=== PATIENT | male | born 1945 | race Caucasian/White ===

== ENCOUNTER 2017-06-19 06:00 | Emergency (ER) | payer OTHER, MEDICARE ==
[2017-06-19 06:06] VITALS: BP 144/83; PULSE 58; RESP 16; TEMP 97.5; O2SAT 97
--- NOTE | 2017-06-19 06:49 | EDPHY ---
H & P Stated Complaint: constipation Time Seen by Provider: 06/19/17 06:36 HPI/ROS: CHIEF COMPLAINT: Flat stool HISTORY OF PRESENT ILLNESS: The patient is a 72-year-old man comes to the emergency department complaining of small episodes of flat stool. He states that it looks like a piece of catie toast. Not discolored. Not bloody. Not painful. No vomiting. No fevers. No abdominal pain. His symptoms have been like this for about a week. He has several episodes each day. He was concerned that he might have a cancer or obstruction. He has been passing gas. He has been eating normally. He feels slightly bloated. He tried taking 1 capsule of MiraLax each day for the last 3 days without significant relief. REVIEW OF SYSTEMS: Constitutional: denies: chills, fever, recent illness, recent injury EENTM: denies: blurred vision, double vision, nose congestion Respiratory: denies: cough, shortness of breath Cardiac: denies: chest pain, irregular heart rate, lightheadedness, palpitations Gastrointestinal/Abdominal: See HPI, denies: abdominal pain, diarrhea, nausea, vomiting, blood streaked stools Genitourinary: denies: dysuria, frequency, hematuria, pain Musculoskeletal: denies: joint pain, muscle pain Skin: denies: lesions, rash, jaundice, bruising Neurological: denies: headache, numbness, paresthesia, tingling, dizziness, weakness Hematologic/Lymphatic: denies: blood clots, easy bleeding, easy bruising Immunologic/allergic: denies: HIV/AIDS, transplant EXAM: GENERAL: Well-appearing, well-nourished and in no acute distress. HEAD: Atraumatic, normocephalic. EYES: Pupils equal round and reactive to light, extraocular movements intact, sclera anicteric, conjunctiva are normal. ENT: TMs normal, nares patent, oropharynx clear without exudates. Moist mucous membranes. NECK: Normal range of motion, supple without lymphadenopathy or JVD. LUNGS: Breath sounds clear to auscultation bilaterally and equal. No wheezes rales or rhonchi. HEART: Regular rate and rhythm without murmurs, rubs or gallops. ABDOMEN: Soft, nontender, normoactive bowel sounds. No guarding, no rebound. No masses appreciated. Rectal: Normal rectal exam, no fissures, no hemorrhoids, nonbloody, normal tone BACK: No CVA tenderness, no spinal tenderness, step-offs or deformities EXTREMITIES: Normal range of motion, no pitting or edema. No clubbing or cyanosis. NEUROLOGICAL: Cranial nerves II through XII grossly intact. Normal speech, normal gait. 5/5 strength, normal movement in all extremities, normal sensation PSYCH: Normal mood, normal affect. SKIN: Warm, dry, normal turgor, no visible rashes or lesions. Source: Patient Exam Limitations: No limitations - Personal History Current Tetanus/Diphtheria Vaccine: Unsure Current Tetanus Diphtheria and Acellular Pertussis (TDAP): Unsure - Medical/Surgical History Hx Asthma: No Hx Chronic Respiratory Disease: No Hx Diabetes: No Hx Cardiac Disease: No Hx Renal Disease: No Hx Cirrhosis: No Hx Alcoholism: No Hx HIV/AIDS: No Hx Splenectomy or Spleen Trauma: No Other PMH: c3-c4 fusion, R hip replavcement, L knee replacement - Family History Significant Family History: No pertinent family hx - Social History Smoking Status: Never smoked Alcohol Use: Sober Drug Use: None Constitutional: Initial Vital Signs Temperature (C) 36.4 C 06/19/17 06:04 Heart Rate 58 L 06/19/17 06:04 Respiratory Rate 16 06/19/17 06:04 Blood Pressure 144/83 H 06/19/17 06:04 O2 Sat (%) 97 06/19/17 06:04 O2 Delivery Mode Room Air Allergies/Adverse Reactions: No Known Allergies Allergy (Unverified 06/19/17 06:03) Home Medications: Medication Instructions Recorded Telly 06/19/17 Miralax 17 gm (*) 06/19/17 Medical Decision Making ED Course/Re-evaluation: The patient has a normal exam and stable vital signs. We discussed options. I do not find any abnormality on rectal exam. He has been able to pass gas and stool but simply in small allotments and states that it is funny shaped. He had a colonoscopy 8 months ago that he reports was normal other than a benign polyp. I will refer him back to his trim setter. I encouraged him to increase his MiraLax to 3-4 capsules per day until her symptoms relieved. Differential Diagnosis: Partial list of the Differential diagnosis considered include but were not limited to; constipation, irritable bowel disease and although unlikely based on the history and physical exam, I also considered hemorrhoid, fissure, cancer , obstruction. I discussed these differential diagnoses and the plan with the patient as well as the usual and expected course. The patient understands that the diagnosis is provisional and that in medicine we are not always correct and that further workup is often warranted. Usual and customary warnings were given. All of the patient's questions were answered. The patient was instructed to return to the emergency department should the symptoms at all worsen or return, otherwise to followup with the physician as we discussed. Departure - Departure Disposition: Home, Routine, Self-Care Clinical Impression: Constipation Qualifiers: Constipation type: unspecified constipation type Qualified Code(s): K59.00 - Constipation, unspecified Condition: Fair Instructions: Constipation (ED) Referrals: Thomas Davenport MD [Primary Care Provider] - As per Instructions Cirilo Anne MD [Medical Doctor] - As per Instructions
== END 2017-06-19 06:53 | disposition home or self-care (01) ==
DX: K59.00 Constipation, unspecified (principal)

== ENCOUNTER 2017-06-22 13:59 | Emergency (ER) | payer OTHER, MEDICARE ==
[2017-06-22 14:04] VITALS: RESP 16
[2017-06-22] MEDS ORDERED: NS 1,000 ML IV ONE (15:22)
--- NOTE | 2017-06-22 15:29 | EDPHY ---
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 He is able to have bowel movements but states that they are pencil thin and that he feels bloated. No blood. No pain. No vomiting. He was seen by me in the ER couple days ago and at that time was complaining of flat stool that looked like "catie toast". A performed a rectal exam that was normal and referred him to GI. He had an appointment with GI today that was canceled unexpectedly so he came back to the emergency department. He states that he has several family members who are doctors and told him to come get imaging to rule out impaction. No fevers. REVIEW OF SYSTEMS: Constitutional: denies: chills, fever, recent illness, recent injury EENTM: denies: blurred vision, double vision, nose congestion Respiratory: denies: cough, shortness of breath Cardiac: denies: chest pain, irregular heart rate, lightheadedness, palpitations Gastrointestinal/Abdominal: The see HPI denies: abdominal pain, diarrhea, nausea, vomiting, blood streaked stools Genitourinary: denies: dysuria, frequency, hematuria, pain Musculoskeletal: denies: joint pain, muscle pain Skin: denies: lesions, rash, jaundice, bruising Neurological: denies: headache, numbness, paresthesia, tingling, dizziness, weakness Hematologic/Lymphatic: denies: blood clots, easy bleeding, easy bruising Immunologic/allergic: denies: HIV/AIDS, transplant EXAM: GENERAL: Well-appearing, well-nourished and in no acute distress. HEAD: Atraumatic, normocephalic. EYES: Pupils equal round and reactive to light, extraocular movements intact, sclera anicteric, conjunctiva are normal. ENT: TMs normal, nares patent, oropharynx clear without exudates. Moist mucous membranes. NECK: Normal range of motion, supple without lymphadenopathy or JVD. LUNGS: Breath sounds clear to auscultation bilaterally and equal. No wheezes rales or rhonchi. HEART: Regular rate and rhythm without murmurs, rubs or gallops. ABDOMEN: Soft, nontender, normoactive bowel sounds. No guarding, no rebound. No masses appreciated. BACK: No CVA tenderness, no spinal tenderness, step-offs or deformities EXTREMITIES: Normal range of motion, no pitting or edema. No clubbing or cyanosis. NEUROLOGICAL: Cranial nerves II through XII grossly intact. Normal speech, normal gait. 5/5 strength, normal movement in all extremities, normal sensation PSYCH: Normal mood, normal affect. SKIN: Warm, dry, normal turgor, no visible rashes or lesions. Source: Patient Exam Limitations: No limitations - Personal History Current Tetanus Diphtheria and Acellular Pertussis (TDAP): Yes - Medical/Surgical History Hx Asthma: No Hx Chronic Respiratory Disease: No Hx Diabetes: No Hx Cardiac Disease: No Hx Renal Disease: No Hx Cirrhosis: No Hx Alcoholism: No Hx HIV/AIDS: No Hx Splenectomy or Spleen Trauma: No Other PMH: c3-c4 fusion, R hip replavcement, L knee replacement - Family History Significant Family History: No pertinent family hx - Social History Smoking Status: Never smoked Alcohol Use: Sober Drug Use: None Constitutional: Initial Vital Signs Temperature (C) 36.6 C 06/22/17 14:02 Heart Rate 61 06/22/17 14:02 Respiratory Rate 16 06/22/17 14:02 Blood Pressure 137/77 H 06/22/17 14:02 O2 Sat (%) 96 06/22/17 14:02 O2 Delivery Mode Room Air Allergies/Adverse Reactions: No Known Allergies Allergy (Unverified 06/19/17 06:03) Home Medications: Medication Instructions Recorded Ambsupriya 06/19/17 Miralax 17 gm (*) 06/19/17 Medical Decision Making ED Course/Re-evaluation: 4:30 p.m. we discussed the patient's x-rays and lab results. He refused the CT scan. He had initially come requesting an x-ray. We discussed the limited ability of x-ray to shows GI abnormalities. He states that he had multiple kidney stones and CT scans and laminectomies in the past and did not want have another CT scan eventually agreed to the x-ray. His lab work and x-ray are unremarkable. His abdominal exam remains benign. He will reschedule his appointment with GI. He declines any further workup or testing at this time. Differential Diagnosis: Partial list of the Differential diagnosis considered include but were not limited to; constipation, obstruction, and although unlikely based on the history and physical exam, I also considered tumor, volvulus, ischemia, appendicitis. I discussed these differential diagnoses and the plan with the patient as well as the usual and expected course. The patient understands that the diagnosis is provisional and that in medicine we are not always correct and that further workup is often warranted. Usual and customary warnings were given. All of the patient's questions were answered. The patient was instructed to return to the emergency department should the symptoms at all worsen or return, otherwise to followup with the physician as we discussed. - Data Points Laboratory Results: Laboratory Results 06/22/17 15:35 06/22/17 15:35 Medications Given: Discontinued Medications Sodium Chloride (Ns) 1,000 mls @ 0 mls/hr IV EDNOW ONE; Wide Open PRN Reason: Protocol Stop: 06/22/17 15:23 Last Admin: 06/22/17 15:39 Dose: 1,000 mls Departure - Departure Disposition: Home, Routine, Self-Care Clinical Impression: Constipation Qualifiers: Constipation type: other constipation type Qualified Code(s): K59.09 - Other constipation Condition: Fair Instructions: Constipation (ED) Referrals: Thomas Davenport MD [Primary Care Provider] - As per Instructions Cirilo Anne MD [Medical Doctor] - As per Instructions
[2017-06-22 15:45] LABS: % IMMATURE GRANULYOCYTES 0.4 % (0.0-1.1); ABSOLUTE IMMATURE GRANULOCYTES 0.02 10^3/uL (0.00-0.10); ADD DIFF? NO; ADD MORPH? NO; ADD SCAN? NO; ATYPICAL LYMPHOCYTE FLAG 0 (0-99); FRAGMENT RBC FLAG 0 (0-99); HEMATOCRIT 45.3 % (40.0-51.0); LEFT SHIFT FLG 0 (0-99); LIPEMIA HEMOLYSIS FLAG 80 (0-99); MEAN CELL HEMOGLOBIN 29.8 pg (27.9-34.1); MEAN CELL HEMOGLOBIN CONCENTR. 33.1 g/dL (32.4-36.7); MEAN CELL VOLUME 90.1 fL (81.5-99.8); MEAN PLATELET VOLUME 11.2 fL (8.7-11.7); PLATELET CLUMPS FLAG 0 (0-99); PLATELET COUNT 265 10^3/uL (150-400); RED BLOOD CELL COUNT 5.03 10^6/uL (4.40-6.38); RED CELL DISTRIBUTION WIDTH 14.2 % (11.5-15.2)
[2017-06-22 16:05] LABS: ALANINE AMINOTRANSFERASE 30 IU/L (21-72); ALBUMIN 4.2 g/dL (3.5-5.0); ALKALINE PHOSPHATASE 70 IU/L (38-126); ANION GAP 11 mEq/L (8-16); ASPARTATE AMINOTRANSFERASE 22 IU/L (17-59); BILIRUBIN,TOTAL 0.7 mg/dL (0.1-1.4); BILIRUBIN-CONJUGATED 0.3 mg/dL (0.0-0.5); BILIRUBIN-UNCONJUGATED 0.4 mg/dL (0.0-1.1); CARBON DIOXIDE 24 mEq/l (22-31); CHLORIDE 107 mEq/L (97-110); GLOMERULAR FILTRATION RATE > 60; GLUCOSE 95 mg/dL (70-100); POTASSIUM 4.9 mEq/L (3.5-5.2); SODIUM 142 mEq/L (134-144); TOTAL PROTEIN 6.6 g/dL (6.3-8.2)
[2017-06-22 16:46] VITALS: BP 125/74; PULSE 81; TEMP 97.7; O2SAT 98
== END 2017-06-22 16:46 | disposition home or self-care (01) ==
DX: K59.09 Other constipation (principal); E86.9 Volume depletion, unspecified

== ENCOUNTER 2017-06-26 16:25 | Emergency (ER) | payer OTHER, MEDICARE ==
[2017-06-26 16:33] VITALS: RESP 16
[2017-06-26] MEDS ORDERED: NS 1,000 ML IV ONE (16:48)
[2017-06-26] MEDS ORDERED: KETOROLAC 30 MG/1 ML SDV IVP ONE (16:48)
[2017-06-26 16:52] LABS: % IMMATURE GRANULYOCYTES 0.2 % (0.0-1.1); ABSOLUTE IMMATURE GRANULOCYTES 0.01 10^3/uL (0.00-0.10); ADD DIFF? NO; ADD MORPH? NO; ADD SCAN? NO; ATYPICAL LYMPHOCYTE FLAG 10 (0-99); FRAGMENT RBC FLAG 0 (0-99); HEMATOCRIT 46.1 % (40.0-51.0); HEMOGLOBIN 15.3 g/dL (13.7-17.5); LEFT SHIFT FLG 0 (0-99); LIPEMIA HEMOLYSIS FLAG 80 (0-99); MEAN CELL HEMOGLOBIN CONCENTR. 33.2 g/dL (32.4-36.7); MEAN CELL VOLUME 87.3 fL (81.5-99.8); MEAN PLATELET VOLUME 10.9 fL (8.7-11.7); PLATELET CLUMPS FLAG 0 (0-99); PLATELET COUNT 257 10^3/uL (150-400); RED BLOOD CELL COUNT 5.28 10^6/uL (4.40-6.38); RED CELL DISTRIBUTION WIDTH 14.2 % (11.5-15.2)
--- NOTE | 2017-06-26 17:00 | EDPHY ---
HPI/HX/ROS/PE/MDM Narrative: CHIEF COMPLAINT: Right lower quadrant pain HPI: The patient is a 72-year-old male with a history of prior kidney stones. The patient has been seen in the ER twice over the last 8 days, both for symptoms of constipation abnormal stool. The patient was seen by supplier quality engineer this morning who apparently performed what sounds like an anoscopy or possible sigmoidoscopy which the patient tells me was negative. The patient is scheduled for colonoscopy within the next few weeks to evaluate his symptoms. Following his appointment with GI, the patient developed severe pain in his right flank and right lower quadrant which she describes as exactly similar to the onset of prior kidney stones. I did look at the patient's previous x-ray which suggests nonobstructive nephrolithiasis on the right side 4 days ago. Patient denies fever. He denies other abdominal pain. REVIEW OF SYSTEMS: Aside from elements discussed in the HPI, a comprehensive 10-point review of systems was reviewed and is negative. PMH: Includes multiple orthopedic surgeries. No history of diabetes. SOCIAL HISTORY: Patient is a retired dentist. He is . PHYSICAL EXAM: General:Patient is alert, in no acute distress. ENT:Eyes are normal to inspection. ENT inspection normal. Neck: Normal inspection. Full range of motion. Respiratory:No respiratory distress. Breath sounds normal bilaterally. Cardiovascular: Regular rate and rhythm. Strong peripheral pulses. Normal cap refill. Abdomen:The abdomen is nontender to palpation. There are no peritoneal signs. There are normal bowel sounds. Back: Normal to inspection. No tenderness to palpation. Skin: Normal color. No rash. Warm and dry. Extremities: Normal appearance. Full range of motion. Neuro: Oriented x3. Normal motor function. Normal sensory function. - Data Points Imaging Results: Imaging Impressions Abdomen/Pelvis Ultrasound 06/26/17 16:50 Impression: 1. Moderate right hydronephrosis, which does not change after voiding. Previously-noted nephrolithiasis is not appreciated sonographically, but would be better detailed with unenhanced CT imaging, as clinically directed. 2. Bilateral urinary bladder diverticula, similar in configuration to a CT scan of 04/26/2016. 3. There is a 5 mm calcification posterior to the right aspect of the urinary bladder, and it is unclear if this represents a distal ureterolith or an adjacent phlebolith. 4. Mobile debris seen within the dependent portion of the urinary bladder. Findings were discussed with Kermit Vance MD at 18:07, on 06/26/2017. Laboratory Results: Laboratory Results 06/26/17 16:44 06/26/17 16:44 06/26/17 06/26/17 06/26/17 17:26 16:44 16:44 WBC 5.42 10^3/uL 10^3/uL (3.80-9.50) RBC 5.28 10^6/uL 10^6/uL (4.40-6.38) Hgb 15.3 g/dL g/dL (13.7-17.5) Hct 46.1 % % (40.0-51.0) MCV 87.3 fL fL (81.5-99.8) MCH 29.0 pg pg (27.9-34.1) MCHC 33.2 g/dL g/dL (32.4-36.7) RDW 14.2 % % (11.5-15.2) Plt Count 257 10^3/uL 10^3/uL (150-400) MPV 10.9 fL fL (8.7-11.7) Neut % (Auto) 63.0 % % (39.3-74.2) Lymph % (Auto) 26.8 % % (15.0-45.0) [place] % (Auto) 7.6 % % (4.5-13.0) Eos % (Auto) 1.8 % % (0.6-7.6) Baso % (Auto) 0.6 % % (0.3-1.7) Nucleat RBC Rel Count 0.0 % % (0.0-0.2) Absolute Neuts (auto) 3.42 10^3/uL 10^3/uL (1.70-6.50) Absolute Lymphs (auto) 1.45 10^3/uL 10^3/uL (1.00-3.00) Absolute Monos (auto) 0.41 10^3/uL 10^3/uL (0.30-0.80) Absolute Eos (auto) 0.10 10^3/uL 10^3/uL (0.03-0.40) Absolute Basos (auto) 0.03 10^3/uL 10^3/uL (0.02-0.10) Absolute Nucleated RBC 0.00 10^3/uL 10^3/uL (0-0.01) Immature Gran % 0.2 % % (0.0-1.1) Immature Gran # 0.01 10^3/uL 10^3/uL (0.00-0.10) Sodium 141 mEq/L mEq/L (134-144) Potassium 4.3 mEq/L mEq/L (3.5-5.2) Chloride 105 mEq/L mEq/L (97-110) Carbon Dioxide 25 mEq/l mEq/l (22-31) Anion Gap 11 mEq/L mEq/L (8-16) BUN 16 mg/dL mg/dL (7-23) Creatinine 0.8 mg/dL mg/dL (0.7-1.3) Estimated GFR > 60 Glucose 111 mg/dL H mg/dL (70-100) Calcium 9.5 mg/dL mg/dL (8.5-10.4) Urine Color YELLOW Urine Appearance HAZY Urine pH 6.0 (5.0-7.5) Ur Specific [place] 1.015 (1.002-1.030) Urine Protein NEGATIVE (NEGATIVE) Urine Ketones NEGATIVE (NEGATIVE) Urine Blood 2+ H (NEGATIVE) Urine Nitrate POSITIVE H (NEGATIVE) Urine Bilirubin NEGATIVE (NEGATIVE) Urine Urobilinogen 0.2 EU EU (0.2-1.0) Ur Leukocyte Esterase 1+ H (NEGATIVE) Urine RBC 25-50 /hpf H /hpf (0-3) Urine WBC 15-25 /hpf H /hpf (0-3) Ur Epithelial Cells 1+ /lpf /lpf (NONE-1+) Urine Bacteria 3+ /hpf H /hpf (NONE SEEN) Urine Mucus 1+ /lpf /lpf (NONE-1+) Urine Yeast OCCASIONAL /hpf H /hpf (NONE SEEN) Urine Glucose NEGATIVE (NEGATIVE) Medications Given: Discontinued Medications Sodium Chloride (Ns) 1,000 mls @ 0 mls/hr IV EDNOW ONE; Wide Open PRN Reason: Protocol Stop: 06/26/17 16:49 Last Admin: 06/26/17 16:52 Dose: 1,000 mls Ketorolac Tromethamine (Toradol) 15 mg IVP EDNOW ONE Stop: 06/26/17 16:49 Last Admin: 06/26/17 16:52 Dose: 15 mg General Time Seen by Provider: 06/26/17 16:29 Initial Vital Signs: Initial Vital Signs Temperature (C) 36.5 C 06/26/17 16:32 Heart Rate 56 L 06/26/17 16:32 Respiratory Rate 16 06/26/17 16:32 Blood Pressure 142/97 H 06/26/17 16:32 O2 Sat (%) 98 06/26/17 16:32 O2 Delivery Mode Room Air Allergies/Adverse Reactions: No Known Allergies Allergy (Unverified 06/19/17 06:03) Home Medications: Medication Instructions Recorded Ambien 06/19/17 Miralax 17 gm (*) 06/19/17 Cephalexin [Keflex] 500 mg PO TID #21 cap 06/26/17 Cialis 06/26/17 Departure - Departure Disposition: Home, Routine, Self-Care Clinical Impression: Renal colic on right side Condition: Good Instructions: Kidney Stones (ED) Additional Instructions: Followup with your urologist within one week. Return to the emergency apartment for fever, severe pain, inability to urinate or other concerns. Strain urine to try and catch the kidney stone and bring this to the urology appointment. Follow-up with GI specialist as scheduled. Referrals: Thomas Davenport MD [Primary Care Provider] - As per Instructions Prescriptions: Cephalexin [Keflex] 500 mg PO TID #21 cap
[2017-06-26 17:03] LABS: ANION GAP 11 mEq/L (8-16); CALCIUM 9.5 mg/dL (8.5-10.4); CARBON DIOXIDE 25 mEq/l (22-31); CHLORIDE 105 mEq/L (97-110); CREATININE 0.8 mg/dL (0.7-1.3); GLOMERULAR FILTRATION RATE > 60; GLUCOSE 111 mg/dL (70-100); POTASSIUM 4.3 mEq/L (3.5-5.2); SODIUM 141 mEq/L (134-144)
[2017-06-26 17:39] LABS: COLOR YELLOW; LEUKOCYTE ESTERASE,URINE 1+ (NEGATIVE); NITRITE,URINE POSITIVE (NEGATIVE)
[2017-06-26 17:46] LABS: BACTERIA 3+ /hpf (NONE SEEN); MUCUS 1+ /lpf (NONE-1+); RBC,URINE 25-50 /hpf (0-3); WBC,URINE 15-25 /hpf (0-3); YEAST OCCASIONAL /hpf (NONE SEEN)
[2017-06-26 18:29] VITALS: BP 116/71; PULSE 54; TEMP 98.4; O2SAT 99
== END 2017-06-26 18:28 | disposition home or self-care (01) ==
LOC: CED 16:25
DX: N23 Unspecified renal colic (principal); E86.9 Volume depletion, unspecified
CPT/HCPCS: 76770; 96361; 96374; 99285; J1885; 80048-PO; 81003-PO; 81015-PO; 85025-PO